=== PATIENT | male | born 1955 | race Caucasian/White ===

== ENCOUNTER 2020-12-07 21:09 | Observation (INO) ==
[2020-12-08] MEDS ORDERED: Naloxone 0.4 MG/ML INJ IVP PRN (02:09)
[2020-12-08] MEDS ORDERED: Ondansetron 4 MG/2 ML VIAL IVP PRN (02:09)
[2020-12-08] MEDS ORDERED: Nitroglycerin 0.4 MG TAB.SUBL SL PRN (02:11)
[2020-12-08] MEDS ORDERED: Morphine Sulfate 2 MG/ML SYRINGE IVP PRN (02:12)
[2020-12-08 03:20] LABS: Hematocrit 46.8 % (37.5-50.1); Hemoglobin 15.2 g/dL (12.9-16.9); Mean Corpuscular HGB Conc 32.5 g/dL (31.6-35.5); Mean Corpuscular Hemoglobin 27.3 pg (28.0-33.3); Mean Platelet Volume 10.5 fL (9.4-12.4); Platelet Count 265 K/mcL (140-400); Red Blood Count 5.57 M/mcL (4.19-5.50); Red Cell Distribution Width 14.3 % (11.5-14.5); White Blood Count 9.2 K/mcL (4.3-11.1)
[2020-12-08 03:34] LABS: INR 1.1; Prothrombin Time 12.4 Seconds (9.4-12.1)
[2020-12-08 03:36] LABS: Activated Partial Thrombo Time 32.4 Seconds (26.0-36.0)
[2020-12-08 03:37] LABS: BUN/Creatinine Ratio 16 (6-26); Blood Urea Nitrogen 15 mg/dL (8-23); Calcium 9.4 mg/dL (8.6-10.3); Carbon Dioxide 25 mEq/L (23-29); Chloride 101 mEq/L (98-107); Glucose 100 mg/dL (70-105); Osmolality,Calculated 281 (280-300); Potassium 3.9 mEq/L (3.5-5.1); Sodium 135 mEq/L (136-145); eGFR For African Americans > 60 (> 60); eGFR For Non-African Americans > 60 (> 60)
[2020-12-08] MEDS ORDERED: *HR* Heparin 5,000 UNIT/ML VIAL IVP PRN ×2 (03:46)
[2020-12-08] MEDS ORDERED: *HR* Heparin 5,000 UNIT/ML VIAL IVP ONE (03:46)
[2020-12-08] MEDS ORDERED: Heparin 25,000UNIT/250ML 1/2NS 25,000 UNIT/250 ML IV.SOLN IVC SCH (04:00)
[2020-12-08] MEDS ORDERED: Perflutren Lipid Microsphere 1.3 ML in 0.9 % Sodium Chloride 8.7 ML IVP PRN (04:05)
[2020-12-08 06:59] LABS: Thyroid Stimulating Hormone 1.771 mcIU/mL (0.340-5.600)
[2020-12-08] MEDS: Aspirin 81 MG TAB.CHEW PO SCH (07:17)
[2020-12-08 10:46] LABS: Estimated Average Glucose 128 mg/dl; Hemoglobin A1C 6.1 %
[2020-12-08 10:53] LABS: Chol/HDL Ratio 7.2 (0-4.9); Troponin I 0.09 ng/mL (< 0.04)
[2020-12-08] MEDS ORDERED: *HR* Heparin 10,000 UNIT/10 ML VIAL ONE ×2 (11:37→13:08)
[2020-12-08] MEDS ORDERED: ISOVUE-370 200 ML INFUS..BTL ONE ×2 (11:37→14:14)
[2020-12-08] MEDS ORDERED: 0.9 % Sodium Chloride 1,000 ML ONE ×2 (11:37→13:08)
[2020-12-08] MEDS ORDERED: Nitroglycerin 1,000 MCG/10 ML VIAL IV ONE ×3 (11:37→14:41)
[2020-12-08] MEDS ORDERED: Heparin 1,000 UNITS/500 mL 500 ML ONE (11:37)
[2020-12-08] MEDS ORDERED: *HR* FentaNYL (PF) 100 MCG/2 ML VIAL ONE (13:34)
[2020-12-08] MEDS ORDERED: *HR* Midazolam HCl 2 MG/2 ML VIAL ONE (13:34)
[2020-12-08] MEDS ORDERED: Tirofiban 12.5 MG/250ML 12.5 MG/250 ML BAG ONE (14:11)
[2020-12-08] MEDS ORDERED: *HR* Ticagrelor 90 MG TABLET ONE (14:41)
[2020-12-08] MEDS ORDERED: Tirofiban 12.5 MG/250ML 12.5 MG/250 ML BAG IVC SCH (15:00)
[2020-12-08] MEDS: *HR* Ticagrelor 90 MG TABLET PO SCH (23:46)
[2020-12-09 05:50] LABS: Basophils # 0.1 K/mcL (0.0-0.2); Basophils % 0.8 %; Eosinophils # 0.4 K/mcL (0.0-0.6); Eosinophils % 4.9 %; Hematocrit 43.4 % (37.5-50.1); Hemoglobin 14.1 g/dL (12.9-16.9); Immature Granulocytes % 0.2 % (0-4); Lymphocytes # 1.3 K/mcL (0.6-4.6); Mean Corpuscular HGB Conc 32.5 g/dL (31.6-35.5); Mean Corpuscular Hemoglobin 27.8 pg (28.0-33.3); Mean Corpuscular Volume 85.6 fL (83.0-100.0); Mean Platelet Volume 10.6 fL (9.4-12.4); Monocytes # 0.9 K/mcL (0.0-1.3); Monocytes % 10.9 %; Neutrophils # 5.6 K/mcL (1.6-8.9); Platelet Count 240 K/mcL (140-400); Red Blood Count 5.07 M/mcL (4.19-5.50); Red Cell Distribution Width 14.4 % (11.5-14.5); Segmented Neutrophils % 67.2 %; White Blood Count 8.4 K/mcL (4.3-11.1)
[2020-12-09 06:06] LABS: BUN/Creatinine Ratio 12 (6-26); Blood Urea Nitrogen 12 mg/dL (8-23); Carbon Dioxide 23 mEq/L (23-29); Chloride 105 mEq/L (98-107); Glucose 76 mg/dL (70-105); Magnesium 2.2 mg/dL (1.6-2.6); Osmolality,Calculated 283 (280-300); Phosphorous 2.7 mg/dL (2.7-4.5); Potassium 3.7 mEq/L (3.5-5.1); Sodium 137 mEq/L (136-145); eGFR For African Americans > 60 (> 60); eGFR For Non-African Americans > 60 (> 60)
[2020-12-09 08:12] VITALS: BP 162/79
[2020-12-09] MEDS ORDERED: Fenofibrate 54 MG TABLET PO SCH (09:00)
[2020-12-09] MEDS: Aspirin 81 MG TAB.CHEW PO SCH (09:01)
[2020-12-09] MEDS: *HR* Ticagrelor 90 MG TABLET PO SCH (09:02)
== END 2020-12-09 11:05 | disposition home or self-care (01) ==
LOC: 3BNU → SUATTDRO 12-08 01:56
PROVIDERS: ADMIT Internal Medicine; ATTEND Internal Medicine